=== PATIENT | female | born 1945 | race Caucasian/White ===

== ENCOUNTER 2017-10-10 18:28 | Observation (INO) | payer MEDICARE, OTHER ==
[2017-10-10 18:41] VITALS: BMI 27.1
--- NOTE | 2017-10-10 19:22 | PDOC ---
History of Present Illness - General Chief Complaint: Weakness Stated Complaint: WEAKNESS Time Seen by Provider: 10/10/17 18:50 - History of Present Illness Initial Comments: 10/10/17 19:21 71 yo F with no significant pmh who p/w dizziness. Patient reports one week of palpitations and "dizziness" described as lightheadedness. Patient states that she was seen at outside ED for similar complaints one week ago (10/05/17),and discharged from ED. now with worsening symptoms lightheadedness, palpitations, and diffuse chest discomfort (unable to describe) beginning this AM. palpitations lasting for seconds resolving spontaneously, and lightheadedness, and chest discomfort unremitting. Also endorses BL UE parasthesisas, chills, without asx. fevers, and SOB beginning today at rest. No identifiable triggers or alleviators. Patient denies N/V, fevers, urinary complaints, abdominal pain, diarrhea, constipation, hematuria, BPR. PMHx: as noted above. does not f/w cardiology. Denies h/o stress testing, stents , CABG. Deneies h/o PE/DVT. ROS: as noted SHx: Denies Etoh, tobacco, IVDA. Allergies: NKDA PMD: Hardeep Gallegos Daughter (Gilda Moore) phone number: [phone] Past History - Past Medical History Allergies/Adverse Reactions: Allergies Allergy/AdvReac Type Severity Reaction Status Date / Time pineapple [Pineapple] Allergy Itching Verified 03/09/14 12:26 APPLES Allergy Itching Uncoded 03/09/14 12:26 GRAPES Allergy Itching Uncoded 03/09/14 12:26 Home Medications: Ambulatory Orders NK [No Known Home Medication] 10/10/17 COPD: No Thyroid Disease: No Other medical history: glacoma - Suicide/Smoking/Psychosocial Hx Smoking Status: No Smoking History: Unknown if ever smoked Have you smoked in the past 12 months: No Number of Cigarettes Smoked Daily: 0 Information on smoking cessation initiated: No Hx Alcohol Use: No Drug/Substance Use Hx: No Substance Use Type: None Review of Systems - Review of Systems Comments:: 10/10/17 19:21 GENERAL/CONSTITUTIONAL: No fever or chills. No weakness. HEAD, EYES, EARS, NOSE AND THROAT: No change in vision. No ear pain or discharge. No sore throat. CARDIOVASCULAR: No chest pain or shortness of breath RESPIRATORY: No cough, wheezing, or hemoptysis. GASTROINTESTINAL: No nausea, vomiting, diarrhea or constipation. GENITOURINARY: No dysuria, frequency, or change in urination. MUSCULOSKELETAL: No joint or muscle swelling or pain. No neck or back pain. SKIN: No rash NEUROLOGIC: No headache, vertigo, loss of consciousness, or change in strength/ sensation. ENDOCRINE: No increased thirst. No abnormal weight change HEMATOLOGIC/LYMPHATIC: No anemia, easy bleeding, or history of blood clots. ALLERGIC/IMMUNOLOGIC: No hives or skin allergy. *Physical Exam - Vital Signs Last Vital Signs Temp Pulse Resp BP Pulse Ox 98 F 86 18 144/69 95 10/10/17 18:36 10/10/17 18:36 10/10/17 18:36 10/10/17 18:36 10/10/17 18:36 - Physical Exam Comments: 10/10/17 19:22 GENERAL: + Diaphoretic. Awake, alert, and fully oriented, in no acute distress HEAD: No signs of trauma, normocephalic, atraumatic EYES: PERRLA, EOMI, sclera anicteric, conjunctiva clear ENT: Auricles normal inspection, hearing grossly normal, nares patent, oropharynx clear without exudates. Moist mucosa NECK: Normal ROM, supple, no lymphadenopathy, JVD, or masses LUNGS: No distress, speaks full sentences, clear to auscultation bilaterally HEART: Regular rate and rhythm, normal S1 and S2, no murmurs, rubs or gallops, peripheral pulses normal and equal bilaterally. ABDOMEN: Soft, nontender, normoactive bowel sounds. No guarding, no rebound. No masses EXTREMITIES : Normal inspection, Normal range of motion, no edema. No clubbing or cyanosis. NEUROLOGICAL: Cranial nerves II through XII grossly intact. Normal speech, no focal sensorimotor deficits SKIN: Warm, Dry, normal turgor, no rashes or lesions noted ED Treatment Course - LABORATORY CBC & Chemistry Diagram: 10/10/17 19:44 10/10/17 19:44 Medical Decision Making - Medical Decision Making 10/10/17 19:46 71 yo F with no significant pmh who p/w lightheadedness, and palpitations. VSS, AF. ACS/RI r/o. PERC pos, but low risk PE based on Wells criteria. R/o PNA. Will assess for infection, cardiac dysarrythmias, electrolyte abnml, toxic or metabolic derangements, acid base disturbances. Ed course: CBC, CMP, Cardiac Pr.UA, Urine Cx. CXR EKG: NSR, with poor R wave progression, and low voltage. Inferior Q waves ( II, III, Avf). Normal interval duration and left axis deviated. CTH 10/10/17 22:04 CBC,CMP: Unremarkable Trop: Neg Ua: Neg 10/10/17 22:05 CXR: Preliminary CXR unremarkable. 10/11/17 00:00 Dr. Gallegos agrees with admission, to tele/obs. 10/11/17 00:00 Admitted tele/obs. *DC/Admit/Observation/Transfer Diagnosis at time of Disposition: Palpitations - Discharge Dispostion Condition at time of disposition: Stable Decision to Admit order: Yes - Referrals - Patient Instructions - Post Discharge Activity
[2017-10-10 20:05] LABS: URINE APPEARANCE CLEAR; URINE BILIRUBIN NEGATIVE (<2.0 mg/dL); URINE COLOR STRAW; URINE GLUCOSE (UA) NEGATIVE (NEGATIVE); URINE KETONE TRACE (NEGATIVE); URINE LEUK ESTERASE NEGATIVE (NEGATIVE); URINE NITRITE NEGATIVE (NEGATIVE); URINE PROTEIN NEGATIVE (NEGATIVE); URINE UROBILINOGEN NEGATIVE mg/dL (0.2-1.0)
[2017-10-10 20:11] LABS: BASO % 0.5 % (0-2.0); EOS % 0.6 % (0-4.5); HEMATOCRIT 41.4 % (32.4-45.2); HEMOGLOBIN 14.1 GM/dL (10.7-15.3); LYMPH % 22.3 % (8-40); MCH 28.6 pg (25.7-33.7); MCHC 34.2 g/dl (32.0-36.0); MEAN CELL VOLUME 83.7 fl (80-96); MEAN PLT VOLUME 7.6 fl (7.5-11.1); MONO % 8.2 % (3.8-10.2); NEUT % 68.4 % (42.8-82.8); PLATELET COUNT 302 K/MM3 (134-434); RBC 4.95 M/mm3 (3.60-5.2); RDW 12.8 % (11.6-15.6); WHITE BLOOD COUNT 8.2 K/mm3 (4.0-10.0)
[2017-10-10 20:34] LABS: ANION GAP 10 MMOL/L (8-16); BLOOD UREA NITROGEN 8 mg/dL (7-18); CALCIUM 9.7 mg/dL (8.5-10.1); CHLORIDE 106 mmol/L (98-107); CO2 26 mmol/L (21-32); CREATININE 0.7 mg/dL (0.55-1.02); GLUCOSE,RANDOM 101 mg/dL (74-106); POTASSIUM 4.3 mmol/L (3.5-5.1); SGOT/AST 21 U/L (15-37); SGPT/ALT 19 U/L (12-78); SODIUM 142 mmol/L (136-145)
[2017-10-10 20:35] LABS: ALK PHOS 79 U/L (45-117); BILIRUBIN,TOTAL 0.4 mg/dL (0.2-1.0); TOT PROT 7.7 g/dl (6.4-8.2)
[2017-10-10] MEDS ORDERED: METOCLOPRAMIDE HCL INJECTION 10 MG/2 ML VIAL IVPUSH ONE (22:30)
[2017-10-10] MEDS ORDERED: SODIUM CHLORIDE 0.9% 1000 ML INFUS.BAG IV ONE (22:30)
--- NOTE | 2017-10-10 22:32 | PDOC ---
Attending Attestation - HPI HPI: 10/10/17 22:44 Patient is a 71 year old female with a significant past medical history of who presents to the ED with complaints of dizziness that began x1 week ago. Patient reports experiencing dizziness that he states feels like lightheadedness as well as associated chest palpitations. He reports being seen earlier for similar symptoms but states symptoms have become increasingly worse after being discharges, prompting her to come into the ED for further evaluation. Patient reports experiencing associated symptoms of bilateral upper extremity tingling, chills, and shortness of breath. Denies chest pain, sob. Denies nausea, vomiting. Denies contact with sick individuals, out of state travelling. Denies dysuria, hematuria. Denies constipation, diarrhea. Denies any other symptoms. Allergies: Pineapple, apples, grapes. Social history: no smoking. No alcohol. No illicit drugs. Surgical history: None PMD: Dr. Hardeep Gallegos - Physicial Exam PE: 10/10/17 22:44 GENERAL: +Slightly lethargy Awake, alert, and fully oriented, in no acute distress HEAD: No signs of trauma EYES: PERRLA, EOMI, sclera anicteric, conjunctiva clear ENT: Auricles normal inspection, hearing grossly normal, nares patent, oropharynx clear without exudates. Moist mucosa NECK: Normal ROM, supple, no lymphadenopathy, JVD, or masses LUNGS: Breath sounds equal, clear to auscultation bilaterally. No wheezes, and no crackles HEART: Regular rate and rhythm, normal S1 and S2, no murmurs, rubs or gallops ABDOMEN: Soft, nontender, normoactive bowel sounds. No guarding, no rebound. No masses EXTREMITIES: Normal range of motion, no edema. No clubbing or cyanosis. No cords, erythema, or tenderness NEUROLOGICAL: Cranial nerves II through XII grossly intact. Normal speech, normal gait SKIN: Warm, Dry, normal turgor, no rashes or lesions noted. <Jimmy Parnell - Last Filed: 10/10/17 22:44> - Resident Resident Name: Kg Sam - ED Attending Attestation I have performed the following: I have examined & evaluated the patient, The case was reviewed & discussed with the resident, I agree w/resident's findings & plan, Exceptions are as noted - Medical Decision Making 10/10/17 22:29 I, Dr. Sirena Callejas, DO, attest that this document has been prepared under my direction and personally reviewed by me in its entirety. I further attest, that it accurately reflects all work, treatment, procedures and medical decision -making performed by me. 10/10/17 22:30 a/p: 71yo female with palpitations earlier and cp -currently palpitations have resolved -no cp at this time -abnl ekg with poor r wave progression and q waves inferiorly per daughter, has never seen cards currently c/o dizzy when she changes positions will send labs, ekg, cxr, ua will monitor and reassess 10/10/17 22:31 pt with dizziness - will medicate will place in obs for cp/palpitations for tele monitoring and repeat trops will continue to monitor will give asa 10/10/17 22:32 daughter at the bedside who was updated on the plan 10/11/17 00:21 resident discussed the case with Dr. Gallegos who agrees with the plan <Sirena Callejas - Last Filed: 10/11/17 00:22> Heart Score/ECG Review - ECG Intrepretation Comment:: 10/10/17 22:29 sinus at 83, q waves inferior leads that are age indeterminate, poor r wave progression, no acute st/t wave findings <Sirena Callejas - Last Filed: 10/11/17 00:22>
[2017-10-10] MEDS ORDERED: ASPIRIN 81 MG CHEWABLE TABLETS PO ONE (22:33)
[2017-10-10] MEDS ORDERED: ASPIRIN 325 MG TABLET ONE (22:50)
[2017-10-10] MEDS ORDERED: METOCLOPRAMIDE HCL INJECTION 10 MG/2 ML VIAL ONE (22:50)
--- NOTE | 2017-10-11 08:27 | HP ---
Admitting History and Physical - Primary Care Physician PCP: Hardeep Gallegos - Admission Chief Complaint: dizzyness History of Present Illness: 5 days ago was at [employer], fasting got very weak, dizzy, lightheaded, went to [facility] er, head ct showed small lacunar infarct in posterior limb of left internal capsule-she was sent home after iv hydration. since home felt weak and unwell, saw dr. gallegos, started baby asa and lipitor 10 mg hs. yesterday again felt very dizzy and shaky with palpitations hence came to er. 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: CVA (lacunar infarct in left internal capsule) - Smoking History Smoking history: Never smoked Have you smoked in the past 12 months: No Aproximately how many cigarettes per day: 0 - Alcohol/Substance Use Hx Alcohol Use: No - Social History Usual Living Arrangement: Yes: Alone ADL: Independent History of Recent Travel: No Home Medications - Allergies Allergies/Adverse Reactions: Allergies Allergy/AdvReac Type Severity Reaction Status Date / Time pineapple [Pineapple] Allergy Itching Verified 03/09/14 12:26 APPLES Allergy Itching Uncoded 03/09/14 12:26 GRAPES Allergy Itching Uncoded 03/09/14 12:26 - Home Medications Home Medications: Ambulatory Orders NK [No Known Home Medication] 10/10/17 Family Disease History - Family Disease History Family History: Unremarkable Review of Systems - Review of Systems Constitutional: reports: Weakness Eyes: reports: No Symptoms HENT: reports: Ringing in Ears (in left) Neck: reports: No Symptoms, Pain on Movement Cardiovascular: reports: No Symptoms Respiratory: reports: No Symptoms Gastrointestinal: reports: No Symptoms Genitourinary: reports: No Symptoms Integumentary: reports: No Symptoms Neurological: reports: Dizziness, Weakness Psychiatric: reports: No Symptoms Physical Examination Vital Signs: Vital Signs Temperature 98 F 10/10/17 18:36 Pulse Rate 69 10/11/17 06:41 Respiratory Rate 10/11/17 06:41 Blood Pressure 138/70 10/11/17 06:41 O2 Sat by Pulse Oximetry (%) 98 10/11/17 06:41 Constitutional: Yes: Well Nourished, No Distress, Calm Eyes: Yes: Conjunctiva Clear, EOM Intact HENT: Yes: Atraumatic, Normocephalic Neck: Yes: Supple, Trachea Midline Cardiovascular: Yes: Regular Rate and Rhythm Respiratory: Yes: CTA Bilaterally Gastrointestinal: Yes: Normal Bowel Sounds, Soft Musculoskeletal: Yes: WNL Extremities: Yes: WNL Edema: No Peripheral Pulses WNL: Yes Integumentary: Yes: WNL Neurological: Yes: WNL, Alert, Oriented (x3), Other (slight smoothing of left labial fold). No: Aphasia ...Motor Strength: WNL Psychiatric: Yes: WNL Labs: CBC, BMP 10/10/17 19:44 10/10/17 19:44 Laboratory Results - last 24 hr 10/10/17 10/10/17 10/10/17 19:44 19:44 19:44 WBC 8.2 RBC 4.95 Hgb 14.1 Hct 41.4 MCV 83.7 MCH 28.6 MCHC 34.2 RDW 12.8 Plt Count 302 D MPV 7.6 Absolute Neuts (auto) 5.6 Neutrophils % 68.4 D Lymphocytes % 22.3 D Monocytes % 8.2 Eosinophils % 0.6 Basophils % 0.5 Nucleated RBC % 0 Sodium 142 Potassium 4.3 Chloride 106 Carbon Dioxide 26 Anion Gap 10 BUN 8 Creatinine 0.7 Creat Clearance w eGFR > 60 Random Glucose 101 Calcium 9.7 Total Bilirubin 0.4 AST 21 ALT 19 Alkaline Phosphatase 79 Creatine Kinase 81 Troponin I < 0.02 Total Protein 7.7 Albumin 4.0 Urine Color Urine Appearance Urine pH Ur Specific [place] Urine Protein Urine Glucose (UA) Urine Ketones Urine Blood Urine Nitrite Urine Bilirubin Urine Urobilinogen Ur Leukocyte Esterase 10/10/17 19:45 WBC RBC Hgb Hct MCV MCH MCHC RDW Plt Count MPV Absolute Neuts (auto) Neutrophils % Lymphocytes % Monocytes % Eosinophils % Basophils % Nucleated RBC % Sodium Potassium Chloride Carbon Dioxide Anion Gap BUN Creatinine Creat Clearance w eGFR Random Glucose Calcium Total Bilirubin AST ALT Alkaline Phosphatase Creatine Kinase Troponin I Total Protein Albumin Urine Color Straw Urine Appearance Clear Urine pH 6.0 Ur Specific [place] 1.002 Urine Protein Negative Urine Glucose (UA) Negative Urine Ketones Trace H Urine Blood Negative Urine Nitrite Negative Urine Bilirubin Negative Urine Urobilinogen Negative Ur Leukocyte Esterase Negative Imaging - Results Chest X-ray: Report Reviewed Problem List - Problems (1) Dizziness Code(s): R42 - DIZZINESS AND GIDDINESS (2) CVA (cerebral vascular accident) Code(s): I63.9 - CEREBRAL INFARCTION, UNSPECIFIED Qualifiers: CVA mechanism: unspecified Qualified Code(s): I63.9 - Cerebral infarction, unspecified Assessment/Plan persistent dizziness for 5 days-on ct old lacunar infarct asa 81 statin repeat second set cardiac enzyme echo, brain MRI neuro and ent eval requested dc planing if testing is unremarkable
[2017-10-11] MEDS ORDERED: ASPIRIN COATED 81 MG TABLET.EC PO SCH (10:00)
[2017-10-11] MEDS ORDERED: TIMOLOL 0.5% OPHTHALMIC SOL 5 ML BOTTLE OU SCH (10:00)
[2017-10-11] MEDS ORDERED: ASPIRIN COATED 81 MG TABLET.EC ONE (10:16)
--- NOTE | 2017-10-11 10:33 | EKG ---
Test Reason : Blood Pressure : / mmHG Vent. Rate : 083 BPM Atrial Rate : 083 BPM P-R Int : 142 ms QRS Dur : 086 ms QT Int : 392 ms P-R-T Axes : 047 -24 032 degrees QTc Int : 460 ms POOR DATA QUALITY, INTERPRETATION MAY BE ADVERSELY AFFECTED NORMAL SINUS RHYTHM INFERIOR INFARCT , AGE UNDETERMINED POSSIBLE ANTEROLATERAL INFARCT , AGE UNDETERMINED ABNORMAL ECG WHEN COMPARED WITH ECG OF 09-MAR-2014 10:29, INFERIOR INFARCT IS NOW PRESENT Confirmed by ASHLI TA, IVANNA ([id number]) on 10/11/2017 10:32:58 AM Referred By: Confirmed By:IVANNA CORNELIUS MD
--- NOTE | 2017-10-11 17:32 | ECHO ---
Name: MARIS SORIANO Exam:Adult Echocardiogram Study Date: 10/11/2017 10:52 AM Age: 71 yrs Reason For Study: LVSF Height: 63 in Weight: 153 lb BSA: 1.7 m2 MMode/2D Measurements & Calculations IVSd: 0.68 cm Ao root diam: 2.7 cm LVIDd: 3.9 cm LA dimension: 2.6 cm LVIDs: 2.8 cm LVPWd: 0.95 cm EDV(Teich): 65.8 ml ESV(Teich): 29.9 ml Doppler Measurements & Calculations MV E max roger: 59.2 cm/sec Med Peak E' Roger: 9.1 cm/sec MV A max roger: 84.9 cm/sec Med E/e': 6.5 MV E/A: 0.70 Lat Peak E' Roger: 7.6 cm/sec MV dec time: 0.43 sec Lat E/e': 7.8 PI Vmax: 74.7 cm/sec Procedure A two-dimensional transthoracic echocardiogram with color flow and Doppler was performed. Left Ventricle The left ventricular size, thickness and function are normal. The left ventricular ejection fraction is normal. The left ventricular wall motion is normal. Right Ventricle The right ventricle is normal in size and function. Atria Normal left and right atrial size and function. Mitral Valve There is mild mitral valve thickening. There is no mitral valve stenosis. There is trace to mild mitr al regurgitation. Tricuspid Valve There is mild tricuspid valve thickening. There is no tricuspid stenosis. There was insufficient TR d etected to calculate RV systolic pressure. Aortic Valve The aortic valve is normal in structure and function. No hemodynamically significant valvular aortic stenosis. No aortic regurgitation is present. Pulmonic Valve The pulmonic valve is not well visualized. There is no pulmonic valvular stenosis. Trace pulmonic gloria vular regurgitation. Interpretation Summary The left ventricular size, thickness and function are normal The left ventricular ejection fraction is normal. The left ventricular wall motion is normal. There was insufficient TR detected to calculate RV systolic pressure. There is trace to mild mitral regurgitation. MD Tj Melissa 10/11/2017 03:21 PM
--- NOTE | 2017-10-11 18:06 | CON.NEURO ---
Consult - History of Present Illness History of Present Illness: 71 yr old female presents c/o 5 days ago, fasting got very weak, dizzy, lightheaded, went to [facility] er, head ct showed small lacunar infarct in posterior limb of left internal capsule-she was sent home after iv hydration. since home felt weak and unwell, saw dr. yu, started baby asa and lipitor 10 mg hs. yesterday again felt very dizzy and shaky with palpitations hence came to er. today upon eval feels dizziness improved. no BYRD. She denies hx of hyptn or DM. MRI Impression: Scattered small vessels infarctions in the white matter of both cerebral hemispheres sequela most probably to long-standing hypertension or small vessel arteriosclerosis.. No evidence acute infarct. No evidence acute intracerebral hemorrhage, subdural fluid collection or hydrocephalus. Cerebellopontine angles unremarkable with no evidence of intra or extra canalicular acoustic schwannoma. 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: CVA (lacunar infarct in left internal capsule) - Alcohol/Substance Use Hx Alcohol Use: No - Smoking History Smoking history: Never smoked Have you smoked in the past 12 months: No Aproximately how many cigarettes per day: 0 - Social History ADL: Independent History of Recent Travel: No Home Medications - Allergies Allergies/Adverse Reactions: Allergies Allergy/AdvReac Type Severity Reaction Status Date / Time pineapple [Pineapple] Allergy Itching Verified 03/09/14 12:26 APPLES Allergy Itching Uncoded 03/09/14 12:26 GRAPES Allergy Itching Uncoded 03/09/14 12:26 - Home Medications Home Medications: Ambulatory Orders Aspirin Coated [Ecotrin -] 81 mg PO DAILY tablet.ec 10/11/17 Atorvastatin Ca [Lipitor] 10 mg PO HS tablet 10/11/17 Latanoprost 0.005% Eye Drops [Xalatan 0.005% Eye Drops -] 1 drop OU HS drops Meclizine HCl [Antivert -] 12.5 mg PO TID PRN #21 tablet 10/11/17 Timolol 0.5% [Timoptic 0.5%] 1 drop OU BID drops 10/11/17 Physical Exam-Neuro Vital Signs: Vital Signs Temperature 97.6 F 10/11/17 10:25 Pulse Rate 67 10/11/17 10:25 Respiratory Rate 16 10/11/17 10:25 Blood Pressure 123/73 10/11/17 10:25 O2 Sat by Pulse Oximetry (%) 95 10/11/17 10:25 Labs: CBC, BMP 10/10/17 19:44 10/10/17 19:44 Assessment/Plan 71 yr old female 5 days ago was at [employer], fasting got very weak, dizzy, lightheaded, went to [facility] er, head ct showed small lacunar infarct in posterior limb of left internal capsule-she was sent home after iv hydration. since home felt weak and unwell, saw dr. yu, started baby asa and lipitor 10 mg hs. yesterday again felt very dizzy and shaky with palpitations hence came to er. MRI shows very mild white matter changes. AP : suspect peripheral vertigo - resolving. no evidence of acute stroke and exam nonfocal. Can DC and FU as outpt. DR SORTO [phone]
[2017-10-11 21:32] VITALS: BP 120/75; PULSE 66; TEMP 98.6
[2017-10-11] MEDS ORDERED: LATANOPROST 0.005% OPHTH SOLN 2.5ML BOTTLE OU SCH (22:00)
[2017-10-11] MEDS ORDERED: ATORVASTATIN CA 10 MG TABLET (FP) PO SCH (22:00)
--- NOTE | 2017-10-15 11:15 | DS ---
Physical Examination Vital Signs: Vital Signs Temperature 98.6 F 10/11/17 19:25 Pulse Rate 66 10/11/17 19:25 Respiratory Rate 17 10/11/17 19:25 Blood Pressure 120/75 10/11/17 19:25 O2 Sat by Pulse Oximetry (%) 99 10/11/17 19:25 Constitutional: Yes: No Distress, Calm Eyes: Yes: EOM Intact HENT: Yes: Normocephalic Neck: Yes: Trachea Midline Cardiovascular: Yes: Regular Rate and Rhythm Respiratory: Yes: CTA Bilaterally Gastrointestinal: Yes: Normal Bowel Sounds, Soft Edema: No Peripheral Pulses WNL: Yes Neurological: Yes: WNL Labs: CBC, BMP 10/10/17 19:44 10/10/17 19:44 Discharge Summary Reason For Visit: CHEST PAIN Hospital Course: admitted for dizziness weakness, MRI brain showed small vessel disease with ischemic changes neurologically stable , vitals stable can dicharge home with outpt f/up blood pressure is ggod in er continue statin, asa ent f/up for cerumen removal as needed, may take prn meclizine for vertigo Condition: Stable - Instructions Referrals: Hardeep Gallegos MD [Primary Care Provider] - Disposition: HOME - Home Medications Comprehensive Discharge Medication List: Ambulatory Orders Aspirin Coated [Ecotrin -] 81 mg PO DAILY tablet.ec 10/11/17 Atorvastatin Ca [Lipitor] 10 mg PO HS tablet 10/11/17 Latanoprost 0.005% Eye Drops [Xalatan 0.005% Eye Drops -] 1 drop OU HS drops Meclizine HCl [Antivert -] 12.5 mg PO TID PRN #21 tablet 10/11/17 Timolol 0.5% [Timoptic 0.5%] 1 drop OU BID drops 10/11/17
== END 2017-10-11 19:25 | disposition home or self-care (01) ==
LOC: JER 18:28 → JERBED 10-11 01:21
PROVIDERS: ADMIT Internal Medicine; ATTEND Internal Medicine
PROC: 3E033GC Introduction of Other Therapeutic Substance into Peripheral Vein, Percutaneous Approach (ICD-10-PCS; principal; 2017-10-11)
PROC: 3E0337Z Introduction of Electrolytic and Water Balance Substance into Peripheral Vein, Percutaneous Approach (ICD-10-PCS; 2017-10-11)
DX: R00.2 Palpitations (principal); R42 Dizziness and giddiness; H40.9 Unspecified glaucoma; Z86.73 Personal history of transient ischemic attack (TIA), and cerebral infarction without residual deficits; Z91.018 Allergy to other foods
CPT/HCPCS: 36415; 70551-TC; 71045-TC-FY; 80053; 81003; 82550; 84484; 85025; 87086; 93005; 93010; 93306-TC; 96374; 99285-25; G0378; J7030

== ENCOUNTER 2021-06-27 07:16 | Emergency (ER) | payer OTHER ==
[2021-06-27 07:40] VITALS: TEMP 97.6; BMI 26.5
[2021-06-27] MEDS ORDERED: DEXAMETHASONE SOD PHOSPHATE 10 MG/1 ML VIAL IVPUSH ONE (08:14)
[2021-06-27] MEDS ORDERED: DEXAMETHASONE SOD PHOSPHATE 10 MG/1 ML VIAL ONE (08:21)
[2021-06-27] MEDS: ALBUTEROL SO4 2.5/IPRATROPIUM 0.5 INH SOL 3 ML VIAL.NEB. NEB SCH ×4 (08:40→09:54)
[2021-06-27 09:17] LABS: BASO % 0.6 % (0-2.0); EOS % 1.6 % (0-4.5); HEMATOCRIT 41.8 % (32.4-45.2); HEMOGLOBIN 14.2 GM/dL (10.7-15.3); LYMPH % 13.4 % (8-40); MCH 28.4 pg (25.7-33.7); MCHC 34.1 g/dl (32.0-36.0); MEAN CELL VOLUME 83.4 fl (80-96); MEAN PLT VOLUME 7.1 fl (7.5-11.1); MONO % 9.8 % (3.8-10.2); NEUT % 74.6 % (42.8-82.8); PLATELET COUNT 266 10^3/uL (134-434); RBC 5.01 M/mm3 (3.60-5.2); RDW 13.1 % (11.6-15.6); WHITE BLOOD COUNT 8.1 K/mm3 (4.0-10.0)
[2021-06-27 10:05] LABS: BLOOD UREA NITROGEN 5.6 mg/dL (7-18); CALCIUM 9.1 mg/dL (8.5-10.1); CREATININE 0.7 mg/dL (0.55-1.3); MAGNESIUM 2.1 mg/dL (1.8-2.4); TOT PROT 7.2 g/dl (6.4-8.2)
[2021-06-27 10:06] LABS: ALBUMIN 3.7 g/dl (3.4-5.0); BILIRUBIN,TOTAL 0.4 mg/dL (0.2-1)
[2021-06-27 10:58] VITALS: BP 128/76; PULSE 88
== END 2021-06-27 11:28 | disposition home or self-care (01) ==
LOC: JER 07:16
PROC: 3E0F7GC Introduction of Other Therapeutic Substance into Respiratory Tract, Via Natural or Artificial Opening (ICD-10-PCS; principal; 2021-06-27)
PROC: 3E033GC Introduction of Other Therapeutic Substance into Peripheral Vein, Percutaneous Approach (ICD-10-PCS; 2021-06-27)
DX: J45.30 Mild persistent asthma, uncomplicated (principal)
CPT/HCPCS: 0241U-QW; 36415; 71045-TC-FY; 80053; 83735; 84484; 85025; 93005; 93010; 94640; 96374; 99285-25; J1100